=== PATIENT | female | born 1980 | race Caucasian/White ===

== ENCOUNTER 2022-08-24 13:17 | Emergency (ER) | payer OTHER ==
[~2022-08-24] VITALS: Ht 157.5 cm; Wt 85.2 kg
[2022-08-24 13:19] VITALS: TEMP 97.8
[2022-08-24 16:28] LABS: AMPHETAMINES LEVEL URINE NEGATIVE (NEGATIVE); BARBITURATES URINE NEGATIVE (NEGATIVE); CANNABINOIDS URINE NEGATIVE (NEGATIVE); METHADONE URINE NEGATIVE (NEGATIVE); OPIATES URINE NEGATIVE (NEGATIVE); PHENCYCLIDINE URINE NEGATIVE (NEGATIVE)
[2022-08-24 16:30] LABS: BENZODIAZEPINES URINE POSITIVE (NEGATIVE); COCAINE METABOLITE URINE POSITIVE (NEGATIVE)
[2022-08-24 18:37] VITALS: BP 130/94; O2SAT 100
[2022-08-24] MEDS ORDERED: EMVE100C2 PO (19:01)
== END 2022-08-24 19:08 | disposition home or self-care (01) ==
LOC: M ED 13:17
DX: J32.9 Chronic sinusitis, unspecified (principal); Z11.6 Encounter for screening for other protozoal diseases and helminthiases; I10 Essential (primary) hypertension; F41.9 Anxiety disorder, unspecified; F32.A Depression, unspecified; Z88.0 Allergy status to penicillin; Z88.8 Allergy status to other drugs, medicaments and biological substances; F17.200 Nicotine dependence, unspecified, uncomplicated